=== PATIENT | male | born 1940 | race Caucasian/White ===

== ENCOUNTER 2017-07-09 09:21 | Day surgery (SDC) | payer OTHER, BC ==
[2017-07-05 16:43] VITALS: BMI 32.6
[2017-07-09] MEDS ORDERED: PROPOFOL 20 ML ONE ×3 (11:45)
[2017-07-09 12:49] VITALS: BP 132/80; PULSE 79; TEMP 97.9
--- NOTE | 2017-07-11 10:39 | PATH ---
Surgical Pathology Report Patient Name: BRETT DENG [facility]. Rec. #: [id number] /Age/Gender: 1940 (Age: 77) / M Account: [id number] Location: Taken: 07/09/2017 Received: 07/09/2017 Reported: 07/11/2017 Physicians: Francisco Bejarano M.D. Specimen(s) Received A: LEFT COLON POLYP B: BX SIGMOID COLON POLYP C: BX RECTUM D: RECTAL POLYP Clinical History Preoperative diagnosis: Change in bowel habits Postoperative diagnosis: Colon polyps Final Diagnosis A. COLON, LEFT, POLYPECTOMY: TUBULAR ADENOMA B. COLON, SIGMOID, LOBECTOMY: COLONIC MUCOSA WITH SUPERFICIAL ULCERATION, AND PROMINENT SUBMUCOSAL LYMPHOID AGGREGATE. NO ADENOMATOUS CHANGE IDENTIFIED. C. COLON, RECTUM, BIOPSY: COLONIC MUCOSA WITH NO PATHOLOGIC CHANGES. NO ACTIVE COLITIS, ARCHITECTURAL DISTORTION, GRANULOMATA, OR DYSPLASIA IDENTIFIED. NO MICROSCOPIC COLITIS IDENTIFIED (NO LYMPHOCYTIC OR COLLAGENOUS COLITIS IDENTIFIED). D. COLON, RECTUM POLYP, POLYPECTOMY: TUBULAR ADENOMA AND HYPERPLASTIC POLYP. Comment: Recommend correlation with clinical findings and follow up as clinically indicated. Electronically Signed Abhay Woods M.D. Gross Description A. Received in formalin, labeled "polyp left colon" is a best, irregular portion of soft tissue measuring 0.4 cm. in greatest dimension. The specimen is submitted in toto in one cassette. B. Received in formalin, labeled "polyp sigmoid" is a best, irregular portion of soft tissue measuring 0.3 cm. in greatest dimension. The specimen is submitted in toto in one cassette. C. Received in formalin, labeled "biopsy rectum" are 2 best, irregular portions of soft tissue measuring 0.2 and 0.5 cm. in greatest dimension. The specimens are submitted in toto in one cassette. D. Received in formalin, labeled "biopsy rectal polyp" are 2 best, irregular portions of soft tissue measuring 0.2 and 0.3 cm. in greatest dimension. The specimens are submitted in toto in one cassette. 07/10/201707/10/2017
== END 2017-07-09 12:50 | disposition home or self-care (01) ==
LOC: FASU-ENDO 09:21
PROVIDERS: ATTEND Internal Medicine Gastroenterology
PROC: 0DBN8ZX Excision of Sigmoid Colon, Via Natural or Artificial Opening Endoscopic, Diagnostic (ICD-10-PCS; 2017-07-09)
PROC: 0DBP8ZX Excision of Rectum, Via Natural or Artificial Opening Endoscopic, Diagnostic (ICD-10-PCS; 2017-07-09)
PROC: 0DBN8ZX Excision of Sigmoid Colon, Via Natural or Artificial Opening Endoscopic, Diagnostic (ICD-10-PCS; 2017-07-09)
PROC: 0DBP8ZX Excision of Rectum, Via Natural or Artificial Opening Endoscopic, Diagnostic (ICD-10-PCS; 2017-07-09)
PROC: 0DBM8ZX Excision of Descending Colon, Via Natural or Artificial Opening Endoscopic, Diagnostic (ICD-10-PCS; principal; 2017-07-09 10:30)
DX: Z12.11 Encounter for screening for malignant neoplasm of colon (principal); Z86.010 Personal history of colon polyps; D12.4 Benign neoplasm of descending colon; D12.7 Benign neoplasm of rectosigmoid junction; D12.5 Benign neoplasm of sigmoid colon; K62.1 Rectal polyp; K57.30 Diverticulosis of large intestine without perforation or abscess without bleeding
CPT/HCPCS: 88305-TC